=== PATIENT | male | born 1990 | race Caucasian/White ===

== ENCOUNTER 2020-10-07 13:47 | Emergency (ER) | payer MEDICAID ==
[~2020-10-07] VITALS: Ht 172.7 cm; Wt 133.7 kg
[~2020-10-07 13:47] MED LIST: SILV20CR13 TP
[2020-10-07] MEDS ORDERED: HYDROcodone/acetaminophen 10/325mg tab PO STA (14:30)
[2020-10-07 15:07] VITALS: BP 150/109
[2020-10-07] MEDS ORDERED: IBUP-1984 PO (16:23)
[2020-10-07] MEDS ORDERED: HYDR-3965 PO (16:23)
[2020-10-07] MEDS ORDERED: morphine 4 MG/ML inj SYRINge IM ONE (16:30)
== END 2020-10-07 17:07 | disposition home or self-care (01) ==
LOC: ER 13:47
DX: S42.302A Unspecified fracture of shaft of humerus, left arm, initial encounter for closed fracture (principal); M79.602 Pain in left arm; Z79.899 Other long term (current) drug therapy; V19.9XXA Pedal cyclist (driver) (passenger) injured in unspecified traffic accident, initial encounter; Y93.89 Activity, other specified; Y92.89 Other specified places as the place of occurrence of the external cause; Y99.8 Other external cause status
CPT/HCPCS: 29125; 73060; 99284; J2270

== ENCOUNTER 2020-10-16 00:17 | Emergency (ER) | payer MEDICAID, OTHER ==
[~2020-10-16] VITALS: Ht 172.7 cm; Wt 122.7 kg
[~2020-10-16 00:17] MED LIST changes: +HYDR-3965 PO; +IBUP-1984 PO
[2020-10-16 00:31] VITALS: BP 162/91
[2020-10-19] MEDS ORDERED: IBUP-24 PO (09:44)
== END 2020-10-16 01:58 | disposition home or self-care (01) ==
LOC: ER 00:18
DX: S60.022A Contusion of left index finger without damage to nail, initial encounter (principal); Z00.00 Encounter for general adult medical examination without abnormal findings; X58.XXXA Exposure to other specified factors, initial encounter; Y93.89 Activity, other specified; Y92.89 Other specified places as the place of occurrence of the external cause; Y99.8 Other external cause status; Z79.899 Other long term (current) drug therapy; Z87.81 Personal history of (healed) traumatic fracture
CPT/HCPCS: 99281

== ENCOUNTER 2020-10-21 07:44 | Day surgery (SDC) | payer MEDICAID ==
[~2020-10-21] VITALS: Ht 172.7 cm; Wt 122.5 kg
[2020-10-21] VITALS (7 sets, daily range): BP systolic 118–150; BP diastolic 74–88
[~2020-10-21 07:44] MED LIST changes: -HYDR-3965 PO; -IBUP-1984 PO; +IBUP-24 PO; -SILV20CR13 TP; +ceFAZolin inj. 3,000 MG in normal saline 100ml IV soln 100 ML IV ONE; +famotidine 20mg tablet PO ONE; +ringers solution, lacted 1,000 ML IV SCH; +vancomycin 1,500 MG in NS 300ml IV soln IV ONE
[2020-10-21 09:26] LABS: BASOPHILS % (AUTO) 0.3 % (0-1); EOSINOPHILS # (AUTO) 0.1 X10'3 (0-0.9); EOSINOPHILS % (AUTO) 1.1 % (0-6); LYMPHOCYTES # (AUTO) 1.2 X10'3 (1.1-4.8); LYMPHOCYTES % (AUTO) 14.6 % (21-51); MEAN CORPUSCULAR HEMOGLOBIN 31.4 PG (27.0-31.0); MEAN CORPUSCULAR VOLUME 89.8 FL (78-98); MONOCYTES # (AUTO) 0.5 X10'3 (0-0.9); NEUTROPHILS # (AUTO) 6.7 X10'3 (1.8-7.7); PLATELET COUNT 342 X10'3 (140-440); RED BLOOD COUNT 4.79 X10'6 (4.70-6.10); RED CELL DISTRIBUTION WIDTH 12.5 % (11.5-14.5); WHITE BLOOD COUNT 8.6 X10'3 (4.5-11.0)
[2020-10-21 09:39] LABS: ALANINE AMINOTRANSFERASE 44 U/L (12-78); ALBUMIN 3.6 G/DL (3.4-5.0); ALBUMIN/GLOBULIN RATIO 0.9 (1.1-1.5); ALKALINE PHOSPHATASE 106 IU/L (46-116); ANION GAP -1 (8-16); ASPARTATE AMINO TRANSFERASE 21 U/L (10-37); BILIRUBIN,TOTAL 0.6 MG/DL (0.1-1.0); BLOOD UREA NITROGEN 11 MG/DL (7-18); BUN/CREATININE RATIO 11.7 (5.4-32.0); CHLORIDE 102 MMOL/L (99-107); CREATININE 0.94 MG/DL (0.60-1.10); GLUCOSE 101 MG/DL (70-104); SODIUM 130 MMOL/L (135-145); TOTAL CARBON DIOXIDE 29.4 MMOL/L (24-32); TOTAL PROTEIN 7.6 G/DL (6.4-8.2); eGFR > 90 ML/MIN
[2020-10-21 09:41] LABS: POTASSIUM 3.8 MMOL/L (3.5-5.1)
[2020-10-21] MEDS ORDERED: cloNIDine hcl/PF 100mcg/ml inj ONE (14:18)
[2020-10-21] MEDS ORDERED: propofol inj 20 ML IV ONE (14:21)
[2020-10-21] MEDS ORDERED: fentaNYL/PF 50MCG/1 ML 2ML syringe ONE ×2 (14:21→15:26)
[2020-10-21] MEDS ORDERED: midazolam 1 mg/ML 2ml injection ONE ×2 (14:21→14:33)
[2020-10-21] MEDS ORDERED: propofol 10mg/ml 20ml vial IV ONE (14:23)
[2020-10-21] MEDS ORDERED: sevoflurane 250ml liquid IH ONE (14:23)
[2020-10-21] MEDS ORDERED: ROPIVAcaine 0.5% (5mg/ml) 30ml vial ONE (14:38)
[2020-10-21] MEDS ORDERED: labetalol 20mg/4ml (5mg/ml) syringe IV PRN (16:05)
[2020-10-21] MEDS ORDERED: ondansetron/PF 4mg/2ml inj IV PRN (16:05)
[2020-10-21] MEDS ORDERED: morphine 2 MG/ML inj. syringe IV PRN (16:05)
[2020-10-21] MEDS ORDERED: meperidine/PF 25mg/ml syringe IV PRN ×4 (16:05)
[2020-10-21] MEDS ORDERED: ringers solution, lacted 1,000 ML IV SCH (16:05)
[2020-10-21] MEDS ORDERED: hydrALAZINE 20mg/ml inj. IV PRN (16:05)
[2020-10-21] MEDS ORDERED: vancomycin 1,000mg inj ONE (16:39)
[2020-10-21] MEDS ORDERED: bacitracin 15gm ointment TP ONE (16:53)
[2020-10-21] MEDS ORDERED: rocuronium 10mg/ml inj IV ONE (17:11)
--- NOTE | 2020-10-21 17:15 | NUR ---
ADMITTED TO PACU FROM OR ACCOMPANIED BY ANESTHESIA. INTIAL PHYSICAL ASSESSMENT DONE AND RECORDED. REPORT RECEIVED FROM ANESTHESIA. EMERGENCE FROM ANESTHESIA COMPROMISED DUE TO AGGRESSIVE, COMBATIVE AROUSAL. IV PULLED OUT, EXCESSIVE DRAINAGE FROM WOUND SITE. XRAY DONE AND SURGICAL SITE REDRESSED PER DR LINK.
[2020-10-21] MEDS ORDERED: oxyCODONE/APAP 10/325mg tablet PO ONE (18:10)
--- NOTE | 2020-10-21 18:15 | NUR ---
DISCHARGE CRITERIA MET, DISCHARGE INSTRUCTIONS GIVEN, DEMONSTRATES VERBAL UNDERSTANDING. DISCHARGED HOME IN GOOD CONDITION. MEDICATED FOR PAIN PRIOR TO DISCHARGE.
== END 2020-10-21 18:30 | disposition home or self-care (01) ==
LOC: PAS 07:44
PROVIDERS: ATTEND Orthopaedic Surgery
DX: S42.352A Displaced comminuted fracture of shaft of humerus, left arm, initial encounter for closed fracture (principal); G89.18 Other acute postprocedural pain; E66.9 Obesity, unspecified; Z68.41 Body mass index [BMI] 40.0-44.9, adult; Z87.891 Personal history of nicotine dependence; Z79.899 Other long term (current) drug therapy; X58.XXXA Exposure to other specified factors, initial encounter; Y93.89 Activity, other specified; Y92.89 Other specified places as the place of occurrence of the external cause; Y99.8 Other external cause status
CPT/HCPCS: 24515; 36415; 64415; 73060; 76000; 76942; 80053; 85025; 93005; C1713; J0690; J0735; J2250; J2704; J3010; J3370; J7040; A4565; A4618; A7000; J2795; J7120